=== PATIENT | male | born 1980 | race Hispanic/Latino ===

== ENCOUNTER 2018-01-09 16:57 | Outpatient (CLI) | payer OTHER ==
[2018-01-09 17:24] LABS: #Basophils 0.1 thou/uL (0.0-0.2); #Eosinphils 0.2 thou/uL (0.0-0.7); #Lymphocytes 2.3 thou/uL (1.20-3.40); #Monocytes 0.6 thou/uL (0.11-0.59); #Neutrophils 5.5 thou/uL (1.40-6.50); %Basophils 0.8 % (0.0-1.0); %Eosinophils 2.7 % (0.0-10.0); %Monocytes 7.3 % (0.0-10.0); %Neutrophils 63.1 % (42.0-75.0); Hemoglobin 15.9 g/dL (14.0-18.0); Mean Corpuscular HGB CONC 34.8 g/dL (32.0-36.0); Mean Corpuscular Hemoglobin 31.1 pg (27.0-31.0); Mean Corpuscular Volume 89.3 fL (78.0-98.0); Platelet Count 315 thou/uL (130-400); RBC Distribution Width 11.8 % (11.5-14.5); Red Blood Cell (RBC) Count 5.12 mill/uL (4.70-6.10); White Blood Cell (WBC) Count 8.7 thou/uL (4.8-10.8)
--- NOTE | 2018-01-15 14:31 | EKG ---
Test Reason : Blood Pressure : / mmHG Vent. Rate : 067 BPM Atrial Rate : 067 BPM P-R Int : 162 ms QRS Dur : 090 ms QT Int : 382 ms P-R-T Axes : 062 077 029 degrees QTc Int : 403 ms Normal sinus rhythm Normal ECG No previous ECGs available Confirmed by LES REYEZ (2) on 01/15/2018 2:31:28 PM Referred By: OLYA Confirmed By:LES REYEZ
== END 2018-01-09 16:58 | disposition home or self-care (01) ==
LOC: LABBT 16:57
PROVIDERS: ATTEND Orthopaedic Surgery
DX: Z01.812 Encounter for preprocedural laboratory examination (principal); M23.41 Loose body in knee, right knee
CPT/HCPCS: 85025; 93005; 93010

== ENCOUNTER 2018-01-11 08:38 | Day surgery (SDC) | payer OTHER ==
[2018-01-09 17:14] VITALS: BMI 38.7
[2018-01-11] MEDS ORDERED: Bupivacaine HCl 0.5%/Epinephrine 1:200,000/PF 30 ml Vial ONE (09:09)
[2018-01-11] MEDS ORDERED: Lidocaine 2% w/Epinephrine 1:200K 20 ML VIAL ONE (09:09)
[2018-01-11] MEDS ORDERED: PROPOFOL 20 ML ONE (09:31)
[2018-01-11] MEDS ORDERED: CEFAZOLIN/Water 2 GM/20 ML SYRINGE ONE (09:32)
[2018-01-11] MEDS ORDERED: PROPOFOL 200 MG/20 ML VIAL ONE (09:42)
[2018-01-11] MEDS ORDERED: Dexamethasone 20 MG/5 ML VIAL ONE (09:42)
[2018-01-11] MEDS ORDERED: Ondansetron HCl/PF 4 MG/2 ML Vial ONE (09:42)
[2018-01-11] MEDS ORDERED: Ketorolac Tromethamine 30 MG/ML VIAL ONE (09:42)
[2018-01-11] MEDS ORDERED: Midazolam HCl 2 mg/2 ml Vial ONE (10:59)
[2018-01-11] MEDS ORDERED: Fentanyl 100 MCG/2 ML VIAL ONE (11:01)
--- NOTE | 2018-01-11 15:05 | OP ---
DATE OF PROCEDURE: 01/11/2018 PREOPERATIVE DIAGNOSIS: Right knee, multiple cartilaginous loose bodies. POSTOPERATIVE DIAGNOSES: 1. Right knee, multiple cartilaginous loose bodies. 2. Multiple loose cartilage flaps on the medial femoral condyle as well as the trochlea of the femur . SURGEON: Marcellus Mckay M.D. HYDROGRAPHICAL TECHNICAL OFFICER: None. PROCEDURE PERFORMED: Right knee arthroscopy with debridement and shaving. BLOOD LOSS: Minimal. COMPLICATIONS: None. ANESTHESIA: He had general anesthetic. He also had local knee block. DISPOSITION: He went to recovery room in stable condition. INDICATIONS: This is a 37-year-old active male who continues to have problems with catching and swel ling of the knee. He has tried nonoperative treatment including injections and he has failed to get good relief. At this time, he opted to have surgery. DESCRIPTION OF PROCEDURE: After all appropriate consent forms were explained and signed, he was take n to the operating room and at this time, was given a general anesthetic. Once the anesthesia was ap propriate, there was a tourniquet placed on his left proximal thigh and the leg was placed in the art hroscopic leg orozco. The limb was then prepped and draped in the standard surgical fashion. The li mb was then exsanguinated and the tourniquet was taken to 300 mmHg. An inferolateral portal was esta blished. The scope was placed into the knee joint. A needle localization technique was then used to make a medial working portal. Diagnostic arthroscopy commenced in the notch, the ACL and PCL were f ound to be intact. Throughout the procedure, multiple 2, 3, and 5 mm cartilaginous loose bodies were encountered and sucked up into the suction shaver device. The medial compartment showed some unstab le chondral flaps in medial femoral condyle. The tibia was in good condition. The medial meniscus w as probed and found to be intact. The lateral compartment was likewise found to be in good condition . Evaluation of the femur showed there to be some significant damage to the medial femoral condyle g oing up into the trochlea where there is near grade 4 lesions with some large unstable chondral flaps . These were taken down to a stable base with the shaver. The patella was also noted to have some c hondral damage and again loose chondral flaps were removed. The gutters were swept through, as well as the suprapatellar pouch and again multiple cartilaginous loose bodies were removed with the suctio n shaver device. All significant areas of synovitic tissue were also debrided. At this time, the sc ope was removed, knee was drained. Portals were closed with simple nylon stitch. Bulky sterile dres sing was applied. Tourniquet was let down. Toes pinked up nicely. The patient was awakened and alyse en to the recovery room in stable condition. All counts were correct at the end of the case. He did receive preoperative IV antibiotics.
== END 2018-01-11 14:25 | disposition home or self-care (01) ==
LOC: SDC 08:38
PROVIDERS: ATTEND Orthopaedic Surgery
PROC: 0SCC4ZZ Extirpation of Matter from Right Knee Joint, Percutaneous Endoscopic Approach (ICD-10-PCS; principal; 2018-01-11)
PROC: 0SBC4ZZ Excision of Right Knee Joint, Percutaneous Endoscopic Approach (ICD-10-PCS; principal; 2018-01-11)
DX: M23.41 Loose body in knee, right knee (principal); M23.91 Unspecified internal derangement of right knee; E66.9 Obesity, unspecified; I10 Essential (primary) hypertension; Z79.899 Other long term (current) drug therapy; Z88.8 Allergy status to other drugs, medicaments and biological substances; Z68.39 Body mass index [BMI] 39.0-39.9, adult
CPT/HCPCS: G8978-GP-CL; G8979-GP-CL; G8980-GP-CL; J0670; J1100; J1885; J2250; J2405; J2704; J3010

== ENCOUNTER 2020-08-22 23:48 | Emergency (ER) | payer OTHER ==
[2020-08-22] MEDS ORDERED: Boostrix 0.5 ML (Tdap) VIAL ONE (23:52)
[2020-08-23 00:17] LABS: #Basophils 0.1 thou/uL (0.0-0.2); #Eosinphils 0.3 thou/uL (0.0-0.7); #Lymphocytes 3.1 thou/uL (1.20-3.40); #Monocytes 0.9 thou/uL (0.11-0.59); #Neutrophils 7.7 thou/uL (1.40-6.50); %Basophils 0.6 % (0.0-1.0); %Eosinophils 2.5 % (0.0-10.0); %Monocytes 7.2 % (0.0-10.0); %Neutrophils 63.8 % (42.0-75.0); Hemoglobin 15.3 g/dL (14.0-18.0); Mean Corpuscular HGB CONC 33.8 g/dL (32.0-36.0); Mean Corpuscular Hemoglobin 30.6 pg (27.0-31.0); Mean Corpuscular Volume 90.5 fL (78.0-98.0); Mean Platelet Volume 7.7 fL (7.4-10.4); Platelet Count 280 thou/uL (130-400); RBC Distribution Width 11.8 % (11.5-14.5); White Blood Cell (WBC) Count 12.1 thou/uL (4.8-10.8)
[2020-08-23 00:47] LABS: ALT (SGPT) 47 U/L (8-55); AST (SGOT) 31 U/L (5-34); Albumin 4.1 g/dL (3.5-5.0); Alkaline Phosphatase 150 U/L (40-110); Anion Gap 16 mmol/L (10-20); BUN (Urea Nitrogen) 19 mg/dL (8.9-20.6); Bilirubin, Total 0.3 mg/dL (0.2-1.2); CK (CPK) 250 U/L (30-200); Calc. Creatinine Clearance 0 mL/min (70-130); Calcium 9.6 mg/dL (7.8-10.44); Carbon Dioxide 24 mmol/L (22-29); Chloride 104 mmol/L (98-107); Globulin 3.5 g/dL (2.4-3.5); Glucose 133 mg/dL (70-105); Potassium 3.8 mmol/L (3.5-5.1); Protein, Total 7.6 g/dL (6.0-8.3); Sodium 140 mmol/L (136-145)
[2020-08-23] MEDS ORDERED: Ketorolac Tromethamine 30 MG/ML VIAL ONE (00:56)
[2020-08-23] MEDS ORDERED: Fentanyl 100 MCG/2 ML VIAL ONE (01:26)
== END 2020-08-23 04:15 | disposition home or self-care (01) ==
LOC: ERS 23:48
DX: S87.82XA Crushing injury of left lower leg, initial encounter (principal); S87.81XA Crushing injury of right lower leg, initial encounter; W23.1XXA Caught, crushed, jammed, or pinched between stationary objects, initial encounter; F17.220 Nicotine dependence, chewing tobacco, uncomplicated
CPT/HCPCS: 36415; 80053; 82550; 85025; 90471; 90715; 96374; 96375; G0390; J1885; J3010